=== PATIENT | female | born 1945 | race Caucasian/White ===

== ENCOUNTER 2017-12-08 09:58 | Day surgery (SDC) | payer MEDICARE, BC ==
[2017-12-07 12:57] LABS: HEMATOCRIT 36.2 % (35.0-45.0); HEMOGLOBIN 12.5 g/dl (12.0-16.0); MEAN CORPUSCULAR HEMOGLOBIN 33.4 PG (27.0-31.0); MEAN CORPUSCULAR HGB CONC 34.4 % (33.0-36.5); MEAN CORPUSCULAR VOLUME 97.1 FL (78-98); MEAN PLATELET VOLUME 7.8 FL (7.4-10.4); PLATELET COUNT 284 X10'3 (140-440); RED CELL DISTRIBUTION WIDTH 12.9 % (11.5-14.5); WHITE BLOOD COUNT 6.1 X10'3 (4.5-11.0)
[2017-12-07 12:58] LABS: BASOPHILS % (AUTO) 0.7 % (0-1); EOSINOPHILS # (AUTO) 0.1 X10'3 (0-0.9); EOSINOPHILS % (AUTO) 1.7 % (0-6); LYMPHOCYTES # (AUTO) 1.9 X10'3 (1.1-4.8); LYMPHOCYTES % (AUTO) 30.3 % (21-51); MONOCYTES # (AUTO) 0.5 X10'3 (0-0.9); MONOCYTES % (AUTO) 8.4 % (2-12); NEUTROPHILS # (AUTO) 3.6 X10'3 (1.8-7.7); NEUTROPHILS % (AUTO) 58.9 % (42-75); RED BLOOD COUNT 3.73 X10'6 (4.20-5.60)
[2017-12-07 13:05] LABS: PARTIAL THROMBOPLASTIN TIME 26 SECONDS (22-32); PROTHROMBIN TIME 10.6 SECONDS (9.0-12.0)
[2017-12-07 13:11] LABS: ALBUMIN 3.7 G/DL (3.4-5.0); ANION GAP 11 (8-16); BLOOD UREA NITROGEN 25 MG/DL (7-18); BUN/CREATININE RATIO 22.5 (6.6-38.0); CALCIUM 8.9 MG/DL (8.5-10.1); CHLORIDE 103 MMOL/L (99-107); CREATININE 1.11 MG/DL (0.40-0.90); GLUCOSE 96 MG/DL (70-104); POTASSIUM 4.3 MMOL/L (3.5-5.1); SODIUM 142 MMOL/L (135-145); TOTAL CARBON DIOXIDE 28.3 MMOL/L (24-32); eGFR 48 ML/MIN
[2017-12-08] VITALS (10 sets, daily range): BP systolic 108–165; BP diastolic 45–118
[~2017-12-08] VITALS: Ht 160 cm; Wt 90.3 kg
[~2017-12-08 09:58] MED LIST: ACET1TAB12 PO; ATOR20TA PO; CARV-50 PO; DIAZ5TAB PO; DIPH-423 PO; ESOM40CA30 PO; ESTR0.6261 PO; FIORINAL PO; MONT10TA21 PO; MONT10TA24 PO; OLME5TAB3 PO; OMEG500C PO; TRAM50TA2 PO; UBID100C45 PO; VALA500T PO
[2017-12-08] MEDS ORDERED: CARV-50 PO (11:00)
[2017-12-08] MEDS ORDERED: HYDR-569 PO (11:00)
[2017-12-08] MEDS ORDERED: SPIR25TA5 PO (11:00)
[2017-12-08] MEDS ORDERED: RED600TA PO (11:00)
[2017-12-08] MEDS ORDERED: LORA10TA7 PO (11:00)
[2017-12-08] MEDS ORDERED: KETO1DRO3 OP (11:00)
[2017-12-08] MEDS ORDERED: CALC-331 PO (11:00)
[2017-12-08] MEDS ORDERED: normal saline 1000ml 1,000 ML IV SCH (11:25)
[2017-12-08] MEDS ORDERED: LORazepam 0.5 MG tablet PO PRN (11:25)
[2017-12-08] MEDS ORDERED: diphenhydrAMINE 25mg capsule PO PRN (11:25)
[2017-12-08] MEDS ORDERED: midazolam 2 mg/2 ml injection ONE (11:52)
[2017-12-08] MEDS ORDERED: LIDOcaine 1% (10mg/ml)w/preservative injection 20ml MDV ONE (11:52)
[2017-12-08] MEDS ORDERED: nitroGLYCERIN-Tridil 50MG/D5W 250 ML IV ONE (11:52)
[2017-12-08] MEDS ORDERED: verapamil 2.5 mg/ml inj IV ONE (11:52)
[2017-12-08] MEDS ORDERED: fentaNYL/PF 50MCG/1 ML 2ML syringe ONE (11:52)
[2017-12-08] MEDS ORDERED: heparin 1,000unit/ml 10ml vial 10 ML ONE (11:53)
[2017-12-08] MEDS ORDERED: iohexol 350MG/ML 100ml bottle IV ONE (11:53)
[2017-12-08] MEDS ORDERED: iohexol 350 MG/ML 50ML vial IV ONE (11:53)
[2017-12-08] MEDS ORDERED: LIDOcaine/PRILOcaine 5gm cream TP ONE (12:00)
[2017-12-08] MEDS ORDERED: pneumococcal 23-VAL P-sac vacc 25 mcg/0.5ml vial IMVAC ONE (15:45)
== END 2017-12-08 18:10 | disposition home or self-care (01) ==
LOC: SSTAY O 09:58
PROVIDERS: ATTEND Internal Medicine Cardiovascular Disease
DX: I25.118 Atherosclerotic heart disease of native coronary artery with other forms of angina pectoris (principal); I10 Essential (primary) hypertension; E78.5 Hyperlipidemia, unspecified; G47.33 Obstructive sleep apnea (adult) (pediatric); M19.90 Unspecified osteoarthritis, unspecified site; G43.909 Migraine, unspecified, not intractable, without status migrainosus; Z90.710 Acquired absence of both cervix and uterus; Z79.01 Long term (current) use of anticoagulants; Z90.49 Acquired absence of other specified parts of digestive tract; Z90.89 Acquired absence of other organs; Z72.89 Other problems related to lifestyle; Z79.891 Long term (current) use of opiate analgesic; Z98.890 Other specified postprocedural states; Z79.899 Other long term (current) drug therapy; Z82.49 Family history of ischemic heart disease and other diseases of the circulatory system
CPT/HCPCS: 36415; 80048; 85025; 85610; 85730; 93458; 99152; 99153; A6402; C1769; J1644; J2001; J2250; J3010; J3490; J7030; Q0163; Q9967; A4620